=== PATIENT | male | born 2005 | race African-American/Black ===

== ENCOUNTER 2024-03-30 12:16 | Emergency (ER) | payer OTHER ==
[~2024-03-30] VITALS: Ht 165.1 cm; Wt 52.0 kg
[2024-03-30 13:29] LABS: BASO % 0.4 % (0.0-1.0); EOS # 0.1 10^3/uL (0.0-0.5); EOS % 1.2 % (0.0-3.0); HEMATOCRIT 48.5 % (42.0-52.0); HEMOGLOBIN 16.3 g/dl (13.5-17.5); LYMPH # 1.5 10^3/uL (1.5-5.0); LYMPH % 30.4 % (24.0-44.0); MEAN CORPUSCULAR HEMOGLOBIN 30.8 pg (27.0-33.0); MEAN CORPUSCULAR HGB CONC 33.6 g/dl (32.0-36.5); MEAN CORPUSCULAR VOLUME 91.5 fl (80.0-96.0); MONO # 0.4 10^3/uL (0.0-0.8); MONO % 7.3 % (2.0-8.0); NEUTROPHILS % 60.5 % (36.0-66.0); PLATELET COUNT, AUTOMATED 191 10^3/uL (150-450); WHITE BLOOD COUNT 4.9 10^3/uL (4.0-10.0)
[2024-03-30 13:53] LABS: BLOOD UREA NITROGEN 15 MG/DL (9-23); CARBON DIOXIDE LEVEL 30 MMOL/L (20-31); CHLORIDE LEVEL 106 MMOL/L (98-107); CREATININE FOR GFR 0.84 MG/DL (0.70-1.30); GLUCOSE, FASTING 78 MG/DL (60-100); POTASSIUM SERUM 4.2 MMOL/L (3.5-5.1); SODIUM LEVEL 139 MMOL/L (136-145)
[2024-03-30 13:56] LABS: HCG, SERUM QUALITATIVE NEGATIVE
[2024-03-30] MEDS ORDERED: ONDANSETRON 4MG 2ML VIAL IV ONE (16:15)
[2024-03-30] MEDS: ONDANSETRON 4MG ORAL DISINTEGRATING TAB PO ONE (16:28)
[2024-03-30] MEDS ORDERED: ISOVUE-370 76% 100ML VIAL As Ordered ONE (18:26)
[2024-03-30 19:34] VITALS: BP 129/70; TEMP 97; O2SAT 100
[2024-03-30] MEDS ORDERED: ONDA-282 PO (20:14)
== END 2024-03-30 20:26 | disposition home or self-care (01) ==
LOC: EDBD 12:16 → M ED 12:16
DX: R10.31 Right lower quadrant pain (principal); Z79.83 Long term (current) use of bisphosphonates
CPT/HCPCS: 36415; 74177; 80048; 84703; 85025; 87486; 87581; 87633; 87798; 87880; 99284; Q9967